=== PATIENT | female | born 1980 | race Caucasian/White ===

== ENCOUNTER 2017-11-28 13:30 | Emergency (ER) | payer OTHER ==
[~2017-11-28] VITALS: Ht 157.5 cm; Wt 63.0 kg
[~2017-11-28 13:30] MED LIST: CELEBREX100 MG PO; DIAZEPAM10 MG PO; SKELAXIN800 MG PO
== END 2017-11-28 17:30 | disposition home or self-care (01) ==
LOC: ER 13:30
DX: R51 Headache (principal)

== ENCOUNTER → 2019-05-25 | Outpatient (CLI) | payer OTHER | END | disposition home or self-care (01) | LOC: RAD 08:35 | DX: M12.88 Other specific arthropathies, not elsewhere classified, other specified site (principal) ==

== ENCOUNTER 2019-11-25 08:05 | Outpatient (CLI) | payer OTHER | END 2019-11-25 08:17 | disposition home or self-care (01) | LOC: SONOGRAMA 08:05 → MAMO-SONO 08:15 → SONOGRAMA 08:17 | DX: R10.2 Pelvic and perineal pain (principal); R10.84 Generalized abdominal pain ==

== ENCOUNTER 2021-11-19 18:40 | Emergency (ER) | payer OTHER ==
[~2021-11-19] VITALS: Ht 157.5 cm; Wt 64.0 kg
== END 2021-11-19 21:54 | disposition home or self-care (01) ==
LOC: ER 18:40
DX: E07.9 Disorder of thyroid, unspecified (principal); Z88.8 Allergy status to other drugs, medicaments and biological substances; Z88.0 Allergy status to penicillin; Z91.013 Allergy to seafood; R07.9 Chest pain, unspecified

== ENCOUNTER 2023-04-21 08:06 | Emergency (ER) | payer OTHER ==
[~2023-04-21] VITALS: Ht 157.5 cm; Wt 65.8 kg
[2023-04-21] MEDS ORDERED: TAPAZOLE5 MG PO (08:26)
== END 2023-04-21 14:09 | disposition home or self-care (01) ==
LOC: ER 08:06
DX: M54.2 Cervicalgia (principal); M62.838 Other muscle spasm

== ENCOUNTER 2023-10-19 13:27 | Emergency (ER) | payer OTHER ==
[~2023-10-19] VITALS: Ht 157.5 cm; Wt 65.8 kg
[~2023-10-19 13:27] MED LIST changes: +TAPAZOLE5 MG PO
[2023-10-19] MEDS ORDERED: CEFTRIAXONE SODIUM 1,000 MG VIAL IM STA (15:05)
[2023-10-19] MEDS ORDERED: METHYLPREDNISOLONE SOD SUCC 125 MG VIAL IM STA (15:05)
== END 2023-10-19 15:20 | disposition home or self-care (01) ==
LOC: ER 13:28
DX: J32.9 Chronic sinusitis, unspecified (principal); Z88.8 Allergy status to other drugs, medicaments and biological substances; Z91.041 Radiographic dye allergy status; Z91.013 Allergy to seafood

== ENCOUNTER 2024-11-30 08:26 | Emergency (ER) | payer OTHER ==
[~2024-11-30] VITALS: Ht 157.5 cm; Wt 67.1 kg
[2024-11-30 09:37] LABS: BASO % 0.2 % (0.1-1.2); EOS # 0.08 (0.04-0.54); EOS % 1.3 % (0.7-7.0); HEMATOCRIT 39.1 % (34.1-44.9); HEMOGLOBIN 12.4 g/dL (11.2-15.7); LYMPH # 0.29 (1.18-3.74); LYMPH % 4.6 % (19.3-53.1); MEAN CORPUSCULAR HEMOGLOBIN 26.2 pg (25.6-32.2); MONO # 0.39 (0.24-0.82); MONO % 6.2 % (4.7-12.5); NEUT # 5.53 (1.56-6.13); NEUT % 87.4 % (34.0-71.1); PLATELET COUNT 254 K/uL (163-369); RED BLOOD COUNT 4.74 M/uL (3.93-5.22); RED CELL DISTRIBUTION WIDTH 14.6 % (11.6-14.4)
[2024-11-30 11:09] LABS: COVID-19 AG POSITIVE (NEGATIVE)
[2024-11-30 11:16] LABS: INFLUENZA A AG NEGATIVE (NEGATIVE)
== END 2024-11-30 11:46 | disposition home or self-care (01) ==
LOC: ER 08:48
PROVIDERS: General Practice
DX: U07.1 COVID-19 (principal); R50.9 Fever, unspecified; Z91.018 Allergy to other foods; Z91.041 Radiographic dye allergy status